=== PATIENT | male | born 1935 | race Caucasian/White ===

== ENCOUNTER 2016-11-12 12:22 | Day surgery (SDC) | payer OTHER, MEDICARE ==
[~2016-11-12] VITALS: Ht 185.4 cm; Wt 97.0 kg
[~2016-11-12 12:22] MED LIST: AMLO5TAB2 PO; ASPI-973 PO; ATEN25TA PO; ATOR20TA PO; EZET10TA PO; LIP40 PO; Sodium Chloride LOK Flush 10 mL Syringe IV PRN; VALS320T12 PO; VALS40TA2 PO; fentaNYL-PF 50 mCg/mL 2 mL Inj IVPUSH PRN
[2016-11-12 12:44] VITALS: BP 136/76; PULSE 76; RESP 14; O2SAT 96
[2016-11-12] MEDS ORDERED: 0.9% Sodium Chloride 1,000 ML IV ONE (13:04)
[2016-11-12 13:27] VITALS: BP 129/70; PULSE 70; RESP 12; O2SAT 94
[2016-11-12 13:37] VITALS: BP 120/61; PULSE 74; RESP 14; O2SAT 96
--- NOTE | 2016-11-12 14:15 | ENDO ---
[address] [address] ENDOSCOPY PROCEDURE PATIENT: KANG DENIS : 1935 MR#: [id number] ADMIT: 11/12/2016 JOB ID: [id number] TYPE OF OPERATION: Colonoscopy with biopsy. PREOPERATIVE DIAGNOSES: Family history of colon cancer, history of tubular adenoma polyps. POSTOPERATIVE DIAGNOSES: 1. There were two polyps measuring 2 mm in size, one in the ascending, one in the sigmoid, removed by cold biopsy forceps. 2. Diverticulosis of the ascending and sigmoid colon. 3. Small internal hemorrhoids. ANESTHESIA: Fentanyl 100 mcg, Versed 5 mg IV administered. COMPLICATION: None. BLOOD LOSS: Minimal. DESCRIPTION OF PROCEDURE: After risks and benefits explained to the patient, informed consent was obtained. After anesthesia administered, a colonoscope was then inserted from the rectum to the cecum. Mucosa carefully examined. Prep of the patient was excellent. After the procedure was done, the scope withdrawn, procedure terminated. FINDINGS: Upon inspection of the anus, no masses, hemorrhoids, ulcers, or fissures that were seen throughout the entire examination. There was a 2 mm ascending colon polyp, 2 mm sigmoid colon polyp, removed by cold biopsy forceps. There was diverticulosis, ascending and sigmoid, that was mild. Retroflexion showed small internal hemorrhoids. IMPRESSIONS: 1. Small internal hemorrhoids. 2. Two polyps measuring 2 mm in size in the ascending and sigmoid, removed by cold biopsy forceps. 3. Diverticulosis, ascending and sigmoid colon. RECOMMENDATIONS: High-fiber diet. Repeat colonoscopy in five years given family history of colon cancer. Follow up in GI clinic as needed.
--- NOTE | 2016-11-15 11:35 | PATH ---
SURGICAL PATHOLOGY Attending Physician:Marcus Carmichael MD CASE STATUS: Signed Out PATIENT NAME: KANG DENIS PID: [id number] : 1935 DATE COLLECTED:11/12/2016 20:17 SPECIMEN: 1: Colon, Biopsy 2: Colon, Biopsy CLINICAL HISTORY: 1). ASCENDING COLON POLYP X1 2). SIGMOID COLON POLYP X1 FINAL DIAGNOSIS: 1.ASCENDING COLON POLYP: TUBULAR ADENOMA. 2.SIGMOID COLON POLYP: HYPERPLASTIC POLYP. ICD10 CODE D12.6 GROSS DESCRIPTION: Received are two formalin-filled containers, both labeled with the patient' s name: 1. Received in formalin, labeled with the patient' s name and "ascending colon polyp", is one fragment of daniel, soft tissue measuring 0.1 x 0.1 x 0.1 cm. The fragment is totally submitted in cassette 1A. 2. Received in formalin, labeled with the patient' s name and "sigmoid colon polyp", is one fragment of daniel, soft tissue measuring 0.2 x 0.1 x 0.1 cm. The fragment is totally submitted in cassette 2A. ([id number]) MICRO DESCRIPTION: See diagnosis. ICD-9 CODES: CPT CODES: 1: 82111 2: 75434 Electronically Signed Out Evans Nguyen MD [facility] [address], [place] [address] Technical component performed at [facility], [facility] [address], [place], [address]
== END 2016-11-12 23:59 | disposition home or self-care (01) ==
LOC: END 12:22
PROVIDERS: ATTEND Internal Medicine Gastroenterology
DX: Z12.11 Encounter for screening for malignant neoplasm of colon (principal); Z86.010 Personal history of colon polyps; Z80.0 Family history of malignant neoplasm of digestive organs; D12.2 Benign neoplasm of ascending colon; K63.5 Polyp of colon; K64.8 Other hemorrhoids; K57.30 Diverticulosis of large intestine without perforation or abscess without bleeding; I10 Essential (primary) hypertension; I25.10 Atherosclerotic heart disease of native coronary artery without angina pectoris; E78.5 Hyperlipidemia, unspecified; I25.2 Old myocardial infarction; Z95.1 Presence of aortocoronary bypass graft; Z79.82 Long term (current) use of aspirin
CPT/HCPCS: 45380; 88305; G0500; J7030